=== PATIENT | female | born 1950 | race African-American/Black ===

== ENCOUNTER 2016-12-06 15:57 | Emergency (ER) | payer BC ==
[2016-12-06 13:05] LABS: INFLUENZA A SCREEN NEGATIVE (NEGATIVE); INFLUENZA B SCREEN POSITIVE (NEGATIVE)
== END 2016-12-06 15:59 | disposition home or self-care (01) ==
LOC: ER 15:57
PROVIDERS: Nurse Practitioner Acute Care
DX: J10.1 Influenza due to other identified influenza virus with other respiratory manifestations (principal); I10 Essential (primary) hypertension; Z90.710 Acquired absence of both cervix and uterus; Z88.8 Allergy status to other drugs, medicaments and biological substances
CPT/HCPCS: 71020; 87070; 87804; 87880; 93005; 99285